=== PATIENT | female | born 1970 | race Caucasian/White ===

== ENCOUNTER → 2016-09-06 13:33 | Emergency (ER) | payer OTHER ==
[~2016-09-06 13:33] MED LIST: Morphine INJ* 2 MG/ML 1 ML SYRINGE IV ONE; Morphine INJ* 4 MG/ML 1 ML SYRINGE IV ONE; Morphine INJ* 4 MG/ML 1 ML SYRINGE ONE; NS 0.9% 1000 ML* 1,000 ML IV ONE; Ondansetron INJ* 2 MG/ML VIAL IV ONE; Ondansetron INJ* 2 MG/ML VIAL ONE; Tetan/Diph/Pertus SYR(Tdap)* 0.5 ML SYR(BOOSTRIX) use SYR IM ONE; ceFAZolin 1 GM in Dextrose (*) 1 GM/50 ML BAG IVPB ONE
--- NOTE | 2016-09-06 14:16 | RAD ---
Indication: Laceration to the palmar aspect of the hand, left hand injury. 2 views of left hand demonstrates no fracture. No other bone or joint abnormality is identified. A bandage obscures overlying soft tissue. IMPRESSION: No fracture of the left hand is noted.
--- NOTE | 2016-09-06 14:29 | RAD ---
Indication: Fell and landed on glass bottle. Possible glass foreign body and arterial laceration at the LEFT wrist. Comparison: LEFT hand of the same date. Technique: AP and lateral views LEFT wrist Report: Bandage limits assessment of the soft tissues. 2 mm density along the palmar aspect superficial to the base of the first metacarpal may represent an embedded foreign body or artifact from the overlying bandage. Negative for fracture or malalignment. IMPRESSION: Indeterminant for presence of a foreign body due to overlying bandage. Consider removing the bandage and repeating the exam.
[2016-09-06 15:05] LABS: Hematocrit 40 % (35-47); Hemoglobin 13.2 g/dl (12.0-16.0); Mean Corpuscular HGB Conc 33 g/dl (31-36); Mean Corpuscular Hemoglobin 27 pg (27-31); Mean Corpuscular Volume 82 fL (80-97); Mean Platelet Volume 9 um3 (7.4-10.4); Red Blood Count 4.83 10^6/ul (4.0-5.4); Red Cell Distribution Width 16 % (10.5-15); White Blood Count 9.2 10^3/ul (3.5-10.8)
--- NOTE | 2016-09-06 15:26 | ED ---
jaun Wills Timothy, scribed for Audi Lambert MD on 09/06/16 at 1355 . Laceration/Wound HPI - HPI Summary HPI Summary: Echo Trinidad is a 46 yo [place] [facility] [place] on a glass bottle with her left hand in 5/10 pain. She arrives with glass still in the hand with the hand wrapped in a towel. She denies any lightheadedness or nausea , as well as loss of sensation, but is requesting pain management medication. Her Mx includes umbilical hernia repair 2011, hay fever. - History of Current Complaint Stated Complaint: LT HAND/LAC Time Seen by Provider: 09/06/16 13:46 Hx Obtained From: Patient Mechanism of Injury: Sharp/Blunt Trauma Onset/Duration: Sudden Onset Alleviating: Compression Timing: Constant Onset Severity: Moderate Current Severity: Moderate Pain Intensity: 5 Pain Scale Used: 0-10 Numeric Associated Signs & Symptoms: Pain - Allergy/Home Medications Allergies/Adverse Reactions: Allergies Allergy/AdvReac Type Severity Reaction Status Date / Time BEE STINGS Allergy Severe Swelling Uncoded 08/25/16 13:00 PMH/Surg Hx/FS Hx/Imm Hx Cardiovascular History: Denies: Other Cardiovascular Problems/Disorders Respiratory History: Denies: Other Respiratory Problems/Disorders GI History: Denies: Other GI Disorders - umbilical hernia repair 2011 Sensory History: Reports: Hx Contacts or Glasses - GLASSES INST Denies: Hx Hearing Aid Opthamlomology History: Reports: Hx Contacts or Glasses - GLASSES INST - Cancer History Hx Chemotherapy: No Hx Radiation Therapy: No - Surgical History Surgery Procedure, Year, and Place: 2005 D/C MISSED AB DHALIWAL 2011 [place] [facility] [place] LAPAROSCOPIC VENTRAL HERNIA [place] WITH MESH[place] [facility] [place] CERCLAGEMARIZOL, 01/2013 EXP LAPAROTOMY, LYSIS OF ADHESION, VENTRAL HERNIA [place] WITH REPLACEMENT [place] [facility] [place] Anesthesia Reactions: No Infectious Disease History: Denies: Hx Clostridium Difficile, Hx Hepatitis, Hx Human Immunodeficiency Virus (HIV), Hx of Known/Suspected MRSA, Hx Shingles, Hx Tuberculosis, Hx Known/ Suspected VRE, Hx Known/Suspected VRSA, History Other Infectious Disease, Traveled Outside the [place] in Last 30 Days - Family History Known Family History: Positive: Other - breast CA, anasthesis reaction - Social History Alcohol Use: Weekly Substance Use Type: Reports: None Smoking Status (MU): Former Smoker Type: Cigarettes Amount Used/How Often: 1/2 PPD Length of Time of Smoking/Using Tobacco: 15 YEARS Have You Smoked in the Last Year: No Review of Systems Constitutional: Negative Negative: Fever, Chills Eyes: Negative Negative: Erythema ENT: Negative Negative: Sore Throat Cardiovascular: Negative Negative: Palpitations, Chest Pain Respiratory: Negative Negative: Shortness Of Breath, Cough Gastrointestinal: Negative Negative: Abdominal Pain, Vomiting, Nausea Genitourinary: Negative Negative: dysuria, hematuria Musculoskeletal: Negative Negative: Edema - legs Positive: Other - laceration on left hand. Negative: Rash Neurological: Negative - no dizziness Psychological: Normal All Other Systems Reviewed And Are Negative: Yes Physical Exam - Summary Physical Exam Summary: Constitutional: Well-developed, Well-nourished, Alert. (-) Distressed Skin: Warm, Dry. Pulsatile bleeding corrsponding to heart rate from a laceration on the radial aspect of the left hand. Distal sensation is intact. HENT: Normocephalic; Atraumatic Eyes: Conjunctiva normal Neck: Musculoskeletal ROM normal neck. (-) JVD, (-) Stridor, (-) Tracheal deviation Cardio: Rhythm regular, rate normal, Heart sounds normal; Intact distal pulses; The pedal pulses are 2+ and symmetric. Radial pulses are 2+ and symmetric. (-) Murmur Pulmonary/Chest wall: Effort normal. (-) Respiratory distress, (-) Wheezes, (-) Rales Abd: Soft, (-) Tenderness, (-) Distension, (-) Guarding, (-) Rebound Musculoskeletal: (-) Edema Lymph: (-) Cervical adenopathy Neuro: Alert, Oriented x3 Psych: Mood and affect Normal Triage Information Reviewed: Yes Vital Signs On Initial Exam: Initial Vitals Temp Pulse Resp BP Pulse Ox 97.1 F 96 20 143/106 99 09/06/16 13:34 09/06/16 13:34 09/06/16 13:34 09/06/16 13:34 09/06/16 13:34 Vital Signs Reviewed: Yes Diagnostics - Vital Signs Vital Signs Temp Pulse Resp BP Pulse Ox 09/06/16 13:34 97.1 F 96 20 143/106 99 - Laboratory Lab Results: Lab Results 09/06/16 Range/Units 14:30 WBC 9.2 (3.5-10.8) 10^3/ul RBC 4.83 (4.0-5.4) 10^6/ul Hgb 13.2 (12.0-16.0) g/dl Hct 40 (35-47) % MCV 82 (80-97) fL MCH 27 (27-31) pg MCHC 33 (31-36) g/dl RDW 16 H (10.5-15) % Plt Count 378 (150-450) 10^3/ul MPV 9 (7.4-10.4) um3 Result Diagrams: 09/06/16 14:30 Lab Statement: Any lab studies that have been ordered have been reviewed, and results considered in the medical decision making process. - Radiology L Hand Xray Interpretation: No Acute Changes - IMPRESSION: No fracture of the left hand is noted. Radiology Interpretation Completed By: Radiologist L wrist Xray Interpretation: No Acute Changes - IMPRESSION: Indeterminant for presence of a foreign body due to overlying bandage. Consider removing the bandage and repeating the exam. Radiology Interpretation Completed By: Radiologist Re-Evaluation - Re-Evaluation First Eval Re-Evaluation Time: 14:23 Change: Worse Comment: Applied more pressure, fingers are becoming cool and dusky. Second Eval Re-Evaluation Time: 15:23 Change: Unchanged Comment: Pt stil lhas sensation in digits, digits are not cyantoic. She is reporting pain in the hand, and is agreeable to be transferred. Laceration Repair Course/Dx - Course Assessment/Plan: Echo Trinidad is a 46 yo female presenting to [facility] with a laceration to her left hand after falling on a glass bottle. There is glass present in the laceration. In the ED she received morphine and zofran. Her left hand XR suggests no fracture. Her left wrist XR suggests indeterminate results for presence of foreign body due to overlying bandage. After clinical examination and review of her lab and imaging studies, as well as discussion with Dr. Gaspar, she will be transferred to [facility] for the services of a vascular surgeon. - Differential Dx Differental Diagnoses: Laceration - Clinical Impression Provider Diagnoses: Laceration of radial artery - Physician Notifications Discussed Care Of Patient With: 1425 - Dr. Gaspar (orthopedics) - discussed Pt condition, will see in ED for evaluation. 1446 - Dr. Gaspar (orthopedics) - recommended services of a dedicated hand surgeon, which would involve transfer to a different facility. 1502 - Pipo Aly - awaiting retun call. 1518 - Dr. Curiel ([facility]) - discussed Pt condition, accepts Pt for transfer for services of vascular surgeon. Instructed by Provider To: MD Will See In ED Discharge - Discharge Plan Condition: Stable Disposition: TRANS HIGHER LVL OF CARE FAC Discharge Disposition Comment: transfer for services of vascular surgeon @ [facility] Referrals: Doris Carter MD [Primary Care Provider] - The documentation as recorded by the jaun kee Timothy accurately reflects the service I personally performed and the decisions made by me, Audi Lambert MD.
[2016-09-06 15:27] LABS: BUN/Creatinine Ratio 25.4 (8-20); Calcium 9.1 mg/dL (8.6-10.3); EGFR Non-African American 88.6 (>60)
[2016-09-06 15:52] VITALS: BP 136/68
== END | disposition short-term general hospital (02) ==
LOC: ED 13:33
DX: S61.412A Laceration without foreign body of left hand, initial encounter (principal); W19.XXXA Unspecified fall, initial encounter; Y93.9 Activity, unspecified; Y92.9 Unspecified place or not applicable; Z87.891 Personal history of nicotine dependence
CPT/HCPCS: 36415; 80048; 85027; 90471; 90715; 96374; 96375; 96376; 99284; J0690; J2270; J2405

== ENCOUNTER 2016-09-09 11:55 | Day surgery (SDC) | payer OTHER ==
--- NOTE | 2016-09-08 21:43 | HP ---
HISTORY AND PHYSICAL: DATE OF SURGERY/ADMISSION: 09/09/16 [facility] ATTENDING SURGEON: Elaina Alvarenga MD (dictated by JEFF Berrios) PROCEDURE: Left hand removal of foreign body. CHIEF COMPLAINT: Left hand pain. HISTORY OF PRESENT ILLNESS: Echo is a 46-year-old female who complains of a 5-year history of left hand pain. She reports that this started on 09/06/16, when she fell at work after she tripped on a pothole and fell on a glass bottle. She was seen at ER where x-rays were obtained and the left hand was sutured. She denies fevers, chills, numbness or tingling. PAST MEDICAL HISTORY: Negative. PAST SURGICAL HISTORY: Hernia repair x4. MEDICATIONS: She is on Keflex. ALLERGIES: No known drug allergies. FAMILY HISTORY: Positive for cancer, diabetes mellitus, and stroke. 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 She denies tobacco use, she quit 15 years ago and admits to a glass of wine per night with dinner and denies drug use. REVIEW OF SYSTEMS: A 14-point review of systems was reviewed with the patient. She does note some mild paresthesias in the left hand. Otherwise, negative review of systems and noncontributory. PHYSICAL EXAMINATION GENERAL: Well-developed, well-nourished 46-year-old female, in no acute distress. VITAL SIGNS: Height 62 inches, weight 210 pounds. Pulse is 76, blood pressure is 121/78, temperature 97.8. She has a BMI of 38.4. HEENT: Normocephalic, atraumatic. NECK: Supple. No palpable lymph nodes. Throat is clear. CARDIO: Regular rate and rhythm. S1, S2. No murmurs, gallops, or rubs. No edema. PULMONARY: Lungs clear to auscultation bilaterally. No wheezes, rhonchi, or rales. ABDOMEN: Soft, nontender. Positive bowel sounds throughout. MUSCULOSKELETAL: There is a wound on the palm of the left hand, which was approximated with sutures. NEUROLOGIC: Alert and oriented x3. Cranial nerves II through XII are intact. Sensation intact to light touch. DIAGNOSTIC STUDIES: X-rays were obtained on 09/06/16 at [facility] [place] emergency room and showed no acute abnormalities. IMPRESSION: Laceration of the left hand with foreign body. PLAN: The patient is scheduled to undergo a left hand removal of foreign body with Dr. Alvarenga on 09/09/16. She will return to the office 10 to 14 days postop for followup and suture removal. The patient declined narcotics for postop pain control. She will take ibuprofen and Tylenol for postoperative pain management. JEFF HEREDIA [id number]/[facility] #: [id number] MTDD
[~2016-09-09 11:55] MED LIST changes: +Acetaminophen TAB* 325 MG PO PRN; +DiMENhydriNATE IV* 50 MG/ML VIAL IV PUSH PRN; +Famotidine IV* 10 MG/ML 2 ML (20 mg) IV ONE; +Lidocaine 1% INJ* 10 MG/ML 30 ML SDV ONE; -Morphine INJ* 2 MG/ML 1 ML SYRINGE IV ONE; -Morphine INJ* 4 MG/ML 1 ML SYRINGE IV ONE; -Morphine INJ* 4 MG/ML 1 ML SYRINGE ONE; -NS 0.9% 1000 ML* 1,000 ML IV ONE; -Ondansetron INJ* 2 MG/ML VIAL IV ONE; -Ondansetron INJ* 2 MG/ML VIAL ONE; -Tetan/Diph/Pertus SYR(Tdap)* 0.5 ML SYR(BOOSTRIX) use SYR IM ONE; -ceFAZolin 1 GM in Dextrose (*) 1 GM/50 ML BAG IVPB ONE
[2016-09-09] MEDS ORDERED: Buffered Lidocaine 1% SYRIN* 5 ML/SYR SYRINGE ONE (12:04)
[2016-09-09] MEDS ORDERED: ceFAZolin 2 GM PREMIX(*) 2 GM/50 ML BAG IVPB ONE (12:04)
[2016-09-09] MEDS ORDERED: Famotidine IV* 10 MG/ML 2 ML (20 mg) ONE ×2 (12:04→12:17)
[2016-09-09] MEDS ORDERED: Propofol* 10 MG/ML 20 ML BTL IV PUSH ONE (12:08)
[2016-09-09] MEDS ORDERED: Midazolam* 1 MG/ML 5 ML VIAL (5 MG) ONE (12:08)
[2016-09-09] MEDS ORDERED: Ketorolac INJ* 30 MG/ML 1 ML VIAL ONE (12:08)
[2016-09-09] MEDS ORDERED: fentaNYL* 50 MCG/ML 2 ML VIAL (100 MCG VIAL) ONE (12:08)
[2016-09-09] MEDS ORDERED: Lidocaine 2% PF * 5 ML VIAL ONE (12:08)
[2016-09-09] MEDS ORDERED: Ondansetron INJ* 2 MG/ML VIAL ONE (12:08)
[2016-09-09] MEDS ORDERED: KETAMINE HCL* 50 MG/ML 10 ML VIAL ONE (12:21)
[2016-09-09 13:53] VITALS: BP 138/73
--- NOTE | 2016-09-10 02:06 | OP ---
DATE OF OPERATION: 09/09/16 [facility] DATE OF : 70 SURGEON: Elaina Alvarenga MD SECURITY GUARD DISPATCHER: JEFF Bruce ANESTHESIOLOGIST: Anel Miranda MD ANESTHESIA: Local MAC. PRE-OP DIAGNOSIS: Foreign body in the left hand with possible median nerve injury. POST-OP DIAGNOSIS: Hematoma in the left hand with median nerve compression. OPERATIVE PROCEDURE: Wound exploration and irrigation and carpal tunnel release. ESTIMATED BLOOD LOSS: Zero. TOURNIQUET TIME: About 20 minutes. INDICATIONS FOR PROCEDURE: Echo is a 46-year-old female who fell with a bottle in her hand, the bottle broke and lacerated her hand. She complains of tingling in her thumb, otherwise her function is intact. She was told at the emergency room at [facility] that she had some glass remaining in her hand. She presents for wound exploration, foreign body removal and median nerve exploration and possible repair. DESCRIPTION OF PROCEDURE: The patient was brought to the operating room, was given a sedation anesthetic and a local anesthetic with 10 cc of 1% plain lidocaine. The skin of her left hand and forearm was prepped and draped in the usual sterile fashion. The hand and forearm were exsanguinated and the tourniquet elevated to 250 mmHg. The sutures were removed and wound extended proximally and distally. The wound was carefully explored. There was a large hematoma. This was evacuated. No foreign body was found. Because of the symptoms of the tingling in the thumb, carpal tunnel release was performed and the median nerve was found to be in good condition without any laceration. The wound was irrigated and the skin edges were reapproximated with 4-0 nylon suture. The wound was dressed with Xeroform, 4x4, Webril, and an Ulysses wrap. The patient tolerated the procedure well, was brought to the recovery room in good condition. [id number]/[facility] #: [id number] [facility]
== END 2016-09-09 13:56 | disposition home or self-care (01) ==
LOC: OREAST 11:55
PROVIDERS: ATTEND Orthopaedic Surgery
DX: S60.222A Contusion of left hand, initial encounter (principal); G56.02 Carpal tunnel syndrome, left upper limb; W19.XXXA Unspecified fall, initial encounter; Y92.9 Unspecified place or not applicable
CPT/HCPCS: J0690; J1885; J2001; J2250; J2405; J2704; J3010

== ENCOUNTER 2017-04-26 08:23 | Observation (INO) | payer SELFPAY ==
--- NOTE | 2017-01-09 15:08 | HP ---
CC: Dr. Doris Carter* ADMISSION HISTORY AND PHYSICAL: DATE OF ADMISSION: 01/25/17 ATTENDING SURGEON: Dr. Arnoldo Elizalde * (DICTATED BY JEFF LENZ) CHIEF COMPLAINT: Ventral hernia. HISTORY OF PRESENT ILLNESS: This is a 46-year-old female who has undergone 4 prior laparotomies beginning in 2011 when she presented with an umbilical hernia with strangulated small bowel requiring resection. This was deemed to be work related as have been all of her subsequent surgeries (see below for surgical history). Since her last surgery in September of 2014, she has again developed an epigastric bulge first noted in July of this year. This has been associated with pain particularly related to activity. She has been fitted with an abdominal binder which she uses throughout the day and is relatively pain free when using the binder. She does not require the binder at night. She has not had any symptoms to suggest incarceration or strangulation. She does have times where she manually needs to reduce the hernia to relieve symptoms (gas and bloating). She underwent CT scan on 08/25/16 which showed a medium sized fat containing ventral hernia without obstruction. She was also noted to have scattered diverticula. She was seen in the office by Dr. Elizalde in August and then again more recently in October where exam confirms presence of a reducible midabdominal hernia that is minimally tender to deep palpation. There is also some rectus diastasis noted superiorly. Dr. Elizalde referred the patient for medically supervised weight loss in attempt to get her weight closer to 200 pounds prior to upcoming surgery. I did review the one note in her chart from Neida Peng, I am not certain if the patient returned for additional visits. She was down to about 200 pounds, though her weight is up 5 pounds from the past week when she was on vacation. Also of note , patient noted right calf pain after driving 5 hours to [place] . She states that it is still present though is about 50% better and on exam, she has tenderness to palpation and the calf circumference is approximately 2 cm greater than the left side. Therefore, she will be sent for venous duplex to rule out DVT. That study is pending for later this afternoon. Patient otherwise understands the indications for surgery. The risks, benefits, and alternatives and would like to proceed as scheduled with laparoscopic repair of ventral hernia with mesh; possible laparotomy. Addendum: venous duplex was positive for calf vein thrombosis; therefore, her PCP office was contacted regarding treatment and her surgery will likely be put on hold pending discussion with Dr. Elizalde. PAST MEDICAL HISTORY: Multiple prior abdominal surgeries for ventral hernias ( see below). She is obese (class II) with BMI today of 37.5. She has also had mildly elevated A1c of 6.4 in the past, with most recent repeat of 5.9. She otherwise has no additional chronic or active medical problems. PAST SURGICAL HISTORY: Most recently in August of 2016, she underwent left hand surgery after a fall with debridement of hematoma and carpal tunnel release. She has done well from that surgery. Her abdominal surgeries include 2011 with small bowel resection for ischemic bowel and repair of hernia, subsequently she underwent I and D of an abdominal abscess. In April 2012, laparoscopic repair of ventral hernia with mesh. In January 2013, exploratory laparotomy, lysis of adhesions, removal of old mesh, small bowel resection, compounded separation with primary closure of abdominal wall and placement of biological mesh. In April of 2014, panniculectomy, excision of a large seroma capsule and repair of a small ventral hernia with mesh. CURRENT MEDICATIONS: None. DRUG ALLERGIES: None. FAMILY HISTORY: Negative for anesthesia problems (with the exception of her mother whose anesthesia problems have been related to her history of asthma; the patient herself has not had any anesthesia related problems), bleeding or clotting disorders. SOCIAL HISTORY: Patient is , she has 2 children. She is a nonsmoker ( quit 15 years ago) and drinks alcohol occasionally, but not daily. 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 REVIEW OF SYSTEMS: General: She has some mild URI symptoms of primarily nasal congestion. She denies fever, chills or productive cough. She also has recent aforementioned right calf pain (see above). Cardiovascular: No chest pain, palpitations, history of heart murmur or hypertension. Respiratory: No history of asthma, chronic cough or shortness of breath. GI: No problems reported. : No problems reported, specifically no dysuria. Medical Billing Coder: She is up- to-date within the past year for breast and pelvic exams, all reportedly normal. Mammogram also done within the past year, reportedly normal. Endocrine : No diabetes or thyroid dysfunction though mildly elevated A1c as noted above. She is class II obese. PHYSICAL EXAMINATION GENERAL: Well-nourished, obese female in no acute distress. VITAL SIGNS: Height 5 feet 2 inches, weight 205, BMI 37.5. Blood pressure 130/ 82, pulse 72, respirations 16. HEENT: Pupils are equal, round, reactive. EOMs intact. No conjunctival pallor. Sclerae icterus. Oropharynx: Mucous membranes are moist. Teeth in good repair. No intraoral lesions. NECK: No lymphadenopathy, thyromegaly or masses. LUNGS: Clear to auscultation. No rales or wheezes. HEART: Regular rate and rhythm. No murmur noted. BREAST: Not examined. ABDOMEN: She has an abdominal binder in place and therefore, limited exam, soft , nontender to palpation. No palpable masses, organomegaly other than the midline abdominal hernia as noted above per Dr. Elizalde's exam. GENITALIA: Not done. RECTAL: Not done. BACK: No spinous process or CVA tenderness. EXTREMITIES: No distal edema. She does have some tenderness in the posterior right calf and maximum calf circumference of approximately 47 cm versus 44 cm on the left. NEUROLOGICAL: Grossly intact. SKIN: Warm and dry. No suspicious rashes or lesions noted. IMPRESSION: Ventral hernia (with multiple previous abdominal surgeries); right lower extremity calf swelling and tenderness. PLAN: Scheduled for laparoscopic ventral hernia repair with mesh, possible laparotomy for 01/25/17. She will be sent for venous Duplex of the right lower extremity which is scheduled for later today. JEFF LENZ [id number]/[facility] #: [id number] LUIS [address]
--- NOTE | 2017-04-13 07:42 | HP ---
CC: Dr. Doris Carter, [facility]. * ADMISSION HISTORY AND PHYSICAL: DATE OF ADMISSION: 04/26/17 ATTENDING SURGEON: Dr. Arnoldo Elizalde * (DICTATED BY JEFF LENZ). CHIEF COMPLAINT: Ventral hernia. HISTORY OF PRESENT ILLNESS: This is a 46-year-old female who has undergone 4 prior laparotomies beginning in 2011 when she presented with an umbilical hernia with strangulated small bowel requiring resection. This was deemed to be work related as have been all of her subsequent surgeries (see below for surgical history). Since her last surgery in September 2014, she has again developed an epigastric bulge first noted in July this year. This has been associated with pain, particularly related to activity. She uses an abdominal binder undergarment, which does help control some of her symptoms at least during the day when she is up and active. She does not require the binder at night. She has not had any symptoms to suggest incarceration or strangulation, but has had a couple of episodes in recent months of severe pain, which responded to manual compression and time. She underwent a CT scan on 08/25/16, which showed a medium-sized fat containing ventral hernia without obstruction. She was also noted to have scattered diverticula. She was seen in the office by Dr. Elizalde in August and then more recently in October and February, where exam confirms the presence of a reducible midabdominal hernia that is minimally tender to deep palpation. There is also some rectus diastasis noted superiorly. The patient was treated in early January for a provoked DVT (following a long car ride). The patient was placed on Xarelto and on recent ultrasound of the right lower extremity there were no findings of DVT. Her workup including factor V Leiden, protein C and protein S was negative, though there is a positive family history of thromboembolic disease (see below). The patient has been cleared to proceed with surgery. She understands the indications, risks, benefits, and alternatives and would like to proceed as scheduled with laparoscopic repair of ventral hernia with mesh with possible laparotomy. PAST MEDICAL HISTORY: Multiple abdominal surgeries for ventral hernias (see below), recent DVT, obesity (class II), history of mildly elevated A1c in the past with most recent repeat of 5.9. No other active medical problems. PAST SURGICAL HISTORY: August 2016, left hand surgery after a fall with debridement of hematoma and carpal tunnel release. Abdominal surgeries include 2012 with small bowel resection for ischemic bowel and repair of hernia. Subsequently, she underwent I and D of an abdominal abscess. In April 2012, laparoscopic repair of ventral hernia with mesh. In January 2013, exploratory laparotomy, lysis of adhesions, removal of old mesh, small bowel resection, component separation with primary closure of abdominal wall and placement of a biological mesh. In April 2014, panniculectomy with excision of a large seroma capsule and repair of a small ventral hernia with mesh. CURRENT MEDICATIONS: None. DRUG ALLERGIES: None. FAMILY HISTORY: Her mother has had some previous anesthesia problems, but primarily related to her asthma. Her mother also had a history of a PE, though the patient is unsure whether it was provoked or not. No additional thromboembolic venous disease in her family. SOCIAL HISTORY: The patient is , she has 2 children. She is a nonsmoker (quit 15 years ago) and drinks alcohol occasionally, but not daily. 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 REVIEW OF SYSTEMS: General: No recent acute illnesses or constitutional symptoms. She is now asymptomatic in regard to her right lower extremity. Cardiovascular: No chest pain, palpitations, history of heart murmur, or hypertension. Respiratory: No history of asthma, chronic cough, or shortness of breath. GI: No problems reported. : No problems reported. REVIEW NURSE: She is up-to-date within the past year for breast and pelvic exams, all reportedly normal. Mammogram done within the past year reportedly normal. Endocrine: No diabetes or thyroid dysfunction other than the mildly elevated A1c as noted above. Class II obesity. PHYSICAL EXAMINATION GENERAL: Well-nourished, well-developed female, in no acute distress. VITAL SIGNS: Height 5 feet 2 inches, weight 205. Temperature 97.8, blood pressure 124/80, pulse 72, respirations 18. HEENT: Pupils equal, round, and reactive. EOMs intact. No conjunctival pallor. Oropharynx: Teeth in good repair. No intraoral lesions. NECK: No lymphadenopathy, thyromegaly, or masses. LUNGS: Clear to auscultation. No rales or wheezes. HEART: Regular rate and rhythm. No murmur noted. BREASTS: Not examined. ABDOMEN: She is status post panniculectomy and therefore her surgical scars and umbilicus are absent from that surgery. In the supine position and with straining, there is a visible and palpable bulge in the mid abdomen, which is nontender and reducible and consistent with the aforementioned ventral hernia. She also has some degree of diastasis in the superior abdomen. The remainder of the abdomen is soft, nontender and without palpable masses or organomegaly. GENITALIA: Not done. RECTAL: Not done. BACK: No spinous process or CVA tenderness. EXTREMITIES: No edema. NEUROLOGICAL: Grossly intact. SKIN: Warm and dry. No suspicious rashes or lesions noted. IMPRESSION: Ventral hernia. PLAN: Laparoscopic repair of ventral hernia with mesh; possible laparotomy. JEFF LENZ [id number]/CPS #: [id number] MTDD
[~2017-04-26 08:23] MED LIST changes: -Acetaminophen TAB* 325 MG PO PRN; +Buffered Lidocaine 0.9% SYRIN* 5 ML/SYR SYRINGE INTRADERM ONE; -DiMENhydriNATE IV* 50 MG/ML VIAL IV PUSH PRN; -Famotidine IV* 10 MG/ML 2 ML (20 mg) IV ONE; -Lidocaine 1% INJ* 10 MG/ML 30 ML SDV ONE
[2017-04-26] MEDS ORDERED: Heparin VIAL(*) 5000 UNITS/ML VIAL (FIVE THOUSAND) ONE (08:46)
[2017-04-26] MEDS ORDERED: ceFAZolin 2 GM PREMIX (*) 2 GM/50 ML BAG IVPB ONE (08:46)
[2017-04-26] MEDS ORDERED: Buffered Lidocaine 0.9% SYRIN* 5 ML/SYR SYRINGE ONE (08:47)
[2017-04-26] MEDS ORDERED: Bupivacaine 0.25% SDV* 30 ML ONE ×2 (10:49→13:19)
[2017-04-26] MEDS ORDERED: Atracurium* 10 MG/ML 10 ML VIAL ONE (10:57)
[2017-04-26] MEDS ORDERED: Midazolam* 1 MG/ML 2 ML VIAL (2 MG) ONE (10:57)
[2017-04-26] MEDS ORDERED: fentaNYL* 50 MCG/ML 2 ML VIAL (100 MCG VIAL) ONE ×4 (10:57→14:07)
[2017-04-26] MEDS ORDERED: Propofol* 10 MG/ML 20 ML BTL IV PUSH ONE (10:57)
[2017-04-26] MEDS ORDERED: Dexamethasone IV* 4 MG/ML 1 ML (4 MG) ONE (11:34)
[2017-04-26] MEDS ORDERED: Ondansetron INJ* 2 MG/ML VIAL IV PRN ×2 (12:29→20:00)
[2017-04-26] MEDS ORDERED: DiMENhydriNATE IV* 50 MG/ML VIAL IV PUSH PRN (12:29)
[2017-04-26] MEDS ORDERED: Ondansetron INJ* 2 MG/ML VIAL ONE ×2 (13:37→15:00)
[2017-04-26] MEDS ORDERED: Glycopyrrolate IV* 0.2 MG/ML 1 ML VIAL ONE (13:42)
[2017-04-26] MEDS ORDERED: Neostigmine Methylsulfate* 2 MG/2 ML SYRINGE ONE ×2 (13:42→13:48)
--- NOTE | 2017-04-26 13:48 | BRIEFOPN ---
Brief Operative Note - Surgery Procedures: Procedures Pre-OP Diagnoses: ventral hernia Post-op Diagnosis: same Procedure: laparoscopic ventral hernia repair with mesh Surgeon: Tonio Asst: John Woods: MARISABEL Dawson EBL: 100cc IVF: 2500cc LR Specimen: none Drains: none
[2017-04-26] MEDS ORDERED: HYDROmorphone INJ* 1 MG/ML CARPUJECT SYRINGE ONE ×2 (14:07→15:50)
[2017-04-26] MEDS: HYDROmorphone INJ* 1 MG/ML CARPUJECT SYRINGE IV PRN ×5 (14:11→15:02)
[2017-04-26] MEDS: fentaNYL* 50 MCG/ML 2 ML VIAL (100 MCG VIAL) IV PRN ×4 (14:12→14:17)
[2017-04-26] MEDS ORDERED: oxyCODONE/Acetamin 5/325 MG* TAB PO PRN ×2 (20:00)
[2017-04-26] MEDS ORDERED: HYDROmorphone INJ* 1 MG/ML CARPUJECT SYRINGE IV PRN (20:01)
[2017-04-26] MEDS ORDERED: diPHENhydraMINE IV* 50 MG/ML 1 ml VIAL (BENADRYL) IV PRN (20:18)
[2017-04-26] MEDS ORDERED: diPHENhydraMINE PO* 25 MG PO PRN (20:18)
[2017-04-26] MEDS: Ibuprofen TAB* 600 MG PO PRN (22:05)
--- NOTE | 2017-04-27 02:20 | OP ---
CC: Dr. Doris Carter * DATE OF OPERATION: 04/26/17 - ROOM #333 DATE OF : 70 SURGEON: Arnoldo Elizalde MD [employer] SALES REPRESENTATIVE: JEFF Hernandez ANESTHESIOLOGIST: Dr. Dawson. ANESTHESIA: General anesthesia. PRE-OP DIAGNOSIS: Ventral hernia. POST-OP DIAGNOSIS: Ventral hernia. OPERATIVE PROCEDURE: Laparoscopic ventral hernia with mesh. BLOOD LOSS: Approximately 100 cc. FLUIDS: 2500 cc of crystalloid fluid given. SPECIMEN: None. DRAINS: None. DESCRIPTION OF PROCEDURE: Ms. Trinidad was identified in the preoperative area. We identified the hernia again and the patient's abdomen was marked. She was brought to the operating room and placed on the operating table in supine position. Preoperative antibiotics were given. Sequential devices were placed on bilateral lower extremities. General anesthesia was induced. Ansari catheter was inserted. Patient's abdomen was prepped and draped in the standard surgical fashion. Time-out was performed. A subcostal incision was made on the left approximately two fingerbreadths below the costal margin on the mid clavicular line. This was deepened down to the anterior fascia, which was elevated and a Veress needle was inserted into the abdominal cavity, which was then insufflated to a pressure of 15 mmHg. Next , a 5-mm Optiview was then inserted into the abdomen and there was no evidence of injury from the trocar insertion. Veress needle had been removed. Camera was placed after the obturator was removed and we reviewed the abdomen. Significant amount of anterior abdominal wall adhesion mostly omentum with some evidence of small bowel and colon mostly in the mid abdomen. Additional trocars were placed in the following position: A 5 mm in the left lower quadrant, a 5 mm in the subxiphoid area. Attention was turned to the anterior abdominal wall. With both blunt and sharp dissection, we released the attachments to the anterior abdominal wall which consisted mostly of omentum. These extended into the hernia where we saw the most significant hernia in the midline. It was measured approximately 4 x 3 cm. We reduced the contents of this, which included additional omentum and this was debrided and removed from the abdomen as needed. We took down a falciform as well. We utilized clip metal bending machine operator when needed to gain hemostasis and at one point an 0 Vicryl Endoloop to gain hemostasis along the omentum. We took care not to have any injury to the intestines and these were avoided at all during the entire procedure. With the hernias identified, there were approximately two and possibly a third hernia in series in the anterior abdominal wall, the most pronounced one was the expected lower one. The others may have been just secondary to changes from patient's abdominoplasty. We gained hemostasis at the omentum as I said before with Endoloops or clip metal bending machine operator as needed. Hemostasis was excellent. The major hernia at the inferior aspect was going to be our primary mesh site. A 4-inch x 6-inch mesh was then opened up. This was a Ventralight ST with Echo PS positioning system. We placed 0 Prolene sutures at all 4 sites and rolled it up and placed it into the abdomen. A tubing was then brought out through the mid portion of our planned tacking of the hernia over the multiple hernia defects. Prior to placing any tacks, we did remove the Surgipro sutures with Endo Close device in an appropriate manner and we noted full coverage of the hernias. Next, a SecureStrap tacker was utilized to tack the perimeter of the mesh. The positioning system was then removed and review of the abdomen showed good hemostasis. Mesh was appropriately placed without wrinkling or without tension. We then allowed the abdomen to collapse. Trocars were removed under direct vision and the anterior fascia at the 12-mm port site. It should be noted we upsized the initial incision site to a 12-mm port, it was closed at the fascial layer with an 0 Polysorb suture and all three skin incisions were reapproximated with 4-0 Monocryl subcuticular sutures. We utilized glue at the sites of the suturing and at the positioning system tubing. The patient was awoken up in the OR, Ansari catheter removed and transferred to the PACU in stable condition. [id number]/[facility] #: [id number] LUIS E
[2017-04-27] MEDS: Ibuprofen TAB* 600 MG PO PRN (07:00)
[2017-04-27 07:41] VITALS: BP 128/63
--- NOTE | 2017-04-27 08:33 | PN ---
Progress Note - Progress Note Date of Service: 04/27/17 Note: S: doing well; louann po; pain controlled w/ po meds; up and ambulating O: Vital Signs - 8 hr 04/27/17 04/27/17 04/27/17 02:08 03:20 06:07 Temperature 98.2 F Pulse Rate 82 Respiratory 16 16 15 Rate Blood Pressure 112/59 (mmHg) O2 Sat by Pulse 99 Oximetry 04/27/17 07:33 Temperature 97.9 F Pulse Rate 73 Respiratory 16 Rate Blood Pressure 128/63 (mmHg) O2 Sat by Pulse 96 Oximetry Heart: reg Lungs: clear ant Abd: binder in place; lap incisions ok A: s/p lap repair ventral hernia w/ mesh P: home today; instructions reviewed; f/u as sched for next wk
--- NOTE | 2017-04-27 17:35 | DS ---
CC: Dr. Doris Carter * DISCHARGE SUMMARY: DATE OF ADMISSION: 04/26/17 DATE OF DISCHARGE: 04/27/17 ATTENDING SURGEON: Dr. Arnoldo Elizalde * (DICTATED BY JEFF LENZ) HOSPITAL COURSE: Please refer to admission history and physical and operative note for details. The patient was taken to the operating room on 04/26/[address] Elizalde and underwent laparoscopic repair of ventral hernia with mesh. She has had an otherwise uneventful postoperative course and as of the morning of discharge is tolerating oral intake and pain was well controlled with oral meds. She is up and ambulating. PHYSICAL EXAMINATION: She is afebrile with stable vital signs. Heart: Regular rate and rhythm. Lungs: Clear to auscultation. Abdomen: Laparoscopic incision sites with clean dry dressings, abdominal binder in place. IMPRESSION: Status post laparoscopic repair of ventral hernia with mesh, doing well. PLAN: Home today. Instructions regarding wound care and activity are reviewed. She has a followup scheduled in our office for next week. JEFF LENZ [id number]/[facility] #: [id number] LUIS E
== END 2017-04-27 10:35 | disposition home or self-care (01) ==
LOC: OR 08:23 → SSU 17:14
PROVIDERS: ADMIT Surgery; ATTEND Surgery
PROC: 0WUF4JZ Supplement Abdominal Wall with Synthetic Substitute, Percutaneous Endoscopic Approach (ICD-10-PCS; principal; 2017-04-26 10:00)
DX: K43.9 Ventral hernia without obstruction or gangrene (principal); E66.9 Obesity, unspecified; Z68.37 Body mass index [BMI] 37.0-37.9, adult; Z87.891 Personal history of nicotine dependence
CPT/HCPCS: 81025; A9270-GY; C1776; C1781; G0378; J0690; J1100; J1170; J1644; J2250; J2405; J2704; J3010

== ENCOUNTER 2017-11-04 15:08 | Emergency (ER) | payer OTHER ==
[2017-11-04 15:26] VITALS: BP 140/102
--- NOTE | 2017-11-04 15:51 | UC ---
General HPI - HPI Summary HPI Summary: This patient is a 47 year old F presenting to [facility] with a chief complaint of right sided facial numbness, right sided facial drooping and right neck pain. She states this morning symptoms began with right eye watering, that slowly worsened throughout the day with her current symptoms. She states she is not able to smile normally and has been told she has changes in speech. Right neck pain is 2/10 in severity upon triage. PMHX of RLE DVT in December 2016, after a long car ride. She was on blood thinner temporarily for 6 months after. - History of Current Complaint Chief Complaint: UCGeneralIllness Stated Complaint: FACIAL NUMBNESS Time Seen by Provider: 11/04/17 15:38 Hx Obtained From: Patient Hx Last Menstrual Period: 10/25/17 Onset/Duration: Lasting Hours Onset Severity: Mild Current Severity: Moderate Pain Intensity: 2 Pain Location at: right neck Character: numbness and weakness to right face Associated Signs & Symptoms: Positive: Other - neck pain, eye watering, speech changes, facial drooping - Allergy/Home Medications Allergies/Adverse Reactions: Allergies Allergy/AdvReac Type Severity Reaction Status Date / Time BEE STINGS Allergy Severe Swelling Uncoded 11/04/17 15:26 Home Medications: Home Medications Aspirin TAB* [Aspirin 325 MG TAB*] 650 mg PO ONCE 11/04/17 [History Confirmed ] PMH/Surg Hx/FS Hx/Imm Hx Cardiovascular History: Deep Vein Thrombosis - Surgical History Surgical History: Yes Surgery Procedure, Year, and Place: 2005 D/C MISSED AB [facility]. 2011 UMBILICAL HERNIA REPAIR, [facility] [place]. 04/2012 LAPAROSCOPIC VENTRAL HERNIA REPAIR WITH MESH, [facility] [place]. 2011 [facility],. 01/2013 EXP LAPAROTOMY, LYSIS OF ADHESION, VENTRAL HERNIA REPAIR WITH REPLACEMENT OF MESH, [facility] [place]. 2015 HERNIA REPAIR [facility] [place] - Family History Known Family History: Positive: Other - breast CA, anasthesis reaction - Social History Alcohol Use: Daily Alcohol Amount: 1 GLASS WINE/DAY Substance Use Type: None Smoking Status (MU): Former Smoker Type: Cigarettes Amount Used/How Often: 1/2 PPD 12 YRS Length of Time of Smoking/Using Tobacco: 15 YEARS Have You Smoked in the Last Year: No When Did the Patient Quit Smoking/Using Tobacco: QUIT 2003 - Immunization History Most Recent Influenza Vaccination: never Most Recent Tetanus Shot: within last 10 years Most Recent Pneumonia Vaccination: never Review of Systems Eyes: Drainage Neurological: Weakness - rigth face, Numbness - right face, Other - speech changes All Other Systems Reviewed And Are Negative: Yes Physical Exam - Summary Physical Exam Summary: General: well-appearing, no pain distress Skin: warm, color reflects adequate perfusion, dry Head: normal Eyes: EOMI, MITCH, right eye lid drifts open ENT: normal Neck: supple, nontender Respiratory: CTA, breath sounds present Cardiovascular: RRR Abdomen: soft, nontender Bowel: present Musculoskeletal: normal, strength/ROM intact Neurological: sensory/motor intact, A&O x3, no focal neurological deficits, no visual loss, right facial droop including right forhead, right eye lid drifts open Psychological: affect/mood appropriate Triage Information Reviewed: Yes Vital Signs: Initial Vital Signs Temp 98.3 F 11/04/17 15:18 Pulse 74 11/04/17 15:18 Resp 16 11/04/17 15:18 BP 140/102 11/04/17 15:18 Pulse Ox 97 11/04/17 15:18 Vital Signs Reviewed: Yes Course/Dx - Course Course Of Treatment: DISCUSSED BELLS DX WITH THE PATIRNT. LYME SCREEN SENT. F/ U PMD; RECHECK SOONER IF WORSE. - Differential Dx - Multi-Symptom Provider Diagnoses: BELLS PALSY RIGHT Discharge - Sign-Out/Discharge Documenting (check all that apply): Patient Departure - Discharge Plan Condition: Stable Disposition: HOME Prescriptions: predniSONE TAB* [Deltasone 20 MG TAB*] 60 mg PO DAILY #21 tab Valacyclovir HCl [Valacyclovir] 1,000 mg PO TID #21 tab Patient Education Materials: Fournier Palsy (ED) Referrals: Doris Carter MD [Primary Care Provider] - Additional Instructions: FOLLOW UP WITH YOUR DOCTOR. USE ARTIFICIAL TEARS AND WEAR AN EYE PATCH AT NIGHT IF NEEDED TO PROTECT YOUR EYE. GET RECHECKED FOR ANY WORSENING OF YOUR CONDITION; NEW WEAKNESS, NUMBNESS, DIFFICULTY WITH SPEECH OR VISION OR QUESTIONS OR CONCERNS. - Billing Disposition and Condition Condition: STABLE Disposition: Home
[2017-11-05 13:44] LABS: ABS Basophils 0.1 10^3/ul (0-0.2); ABS Eosinophils 0.2 10^3/ul (0-0.6); ABS Lymphocytes 2.4 10^3/ul (1.0-4.8); ABS Monocytes 0.4 10^3/ul (0-0.8); ABS Neutrophils 3.4 10^3/ul (1.5-7.7); ABS Nucleated RBC 0 10^3/ul; Eosinophil % 2.6 % (0-6); Hematocrit 43 % (35-47); Hemoglobin 14.3 g/dl (12.0-16.0); Lymphocyte % 37.6 % (25-47); Mean Corpuscular HGB Conc 33 g/dl (31-36); Mean Corpuscular Hemoglobin 28 pg (27-31); Mean Corpuscular Volume 84 fL (80-97); Mean Platelet Volume 9.7 um3 (7.4-10.4); Nucleated Red Blood Cells % 0.2; Platelet Count 398 10^3/ul (150-450); Red Blood Count 5.09 10^6/ul (4.00-5.40); Red Cell Distribution Width 15 % (10.5-15); White Blood Count 6.4 10^3/ul (3.5-10.8)
[2017-11-05 14:16] LABS: EGFR Non-African American 85.5 (>60)
== END 2017-11-04 16:14 | disposition home or self-care (01) ==
LOC: UCEAST 15:08
DX: G51.0 Bell's palsy (principal); M54.2 Cervicalgia; Z86.718 Personal history of other venous thrombosis and embolism; Z79.82 Long term (current) use of aspirin; Z91.030 Bee allergy status; Z80.3 Family history of malignant neoplasm of breast; Z87.891 Personal history of nicotine dependence
CPT/HCPCS: 36415; 80053; 85025; 86140; 86618; 99202; G0463

== ENCOUNTER 2018-03-31 15:13 | Emergency (ER) | payer OTHER ==
[2018-03-31 16:16] LABS: ABS Basophils 0 10^3/ul (0-0.2); ABS Eosinophils 0.1 10^3/ul (0-0.6); ABS Lymphocytes 1.9 10^3/ul (1.0-4.8); ABS Monocytes 0.5 10^3/ul (0-0.8); ABS Neutrophils 5.3 10^3/ul (1.5-7.7); ABS Nucleated RBC 0 10^3/ul; Eosinophil % 1.5 %; Hematocrit 40 % (35-47); Hemoglobin 13.6 g/dl (12.0-16.0); Lymphocyte % 24.6 %; Mean Corpuscular HGB Conc 34 g/dl (31-36); Mean Corpuscular Hemoglobin 29 pg (27-31); Mean Corpuscular Volume 85 fL (80-97); Mean Platelet Volume 8.3 fL (7.4-10.4); Nucleated Red Blood Cells % 0.1; Platelet Count 357 10^3/ul (150-450); Red Blood Count 4.67 10^6/ul (4.00-5.40); Red Cell Distribution Width 14 % (10.5-15); White Blood Count 7.9 10^3/ul (3.5-10.8)
[2018-03-31] MEDS ORDERED: NS 0.9% 1000 ML* 1,000 ML IV ONE (16:20)
[2018-03-31 16:24] LABS: INR 0.86 (0.77-1.02)
[2018-03-31 16:32] LABS: EGFR Non-African American 75.8 (>60)
[2018-03-31] MEDS ORDERED: Iohexol 350* (CONTRAST) 500 ML MDV IV ONE (16:40)
[2018-03-31] MEDS ORDERED: Nitroglycerin TAB 0.4 MG* 0.4 MG TAB SL ONE (16:43)
[2018-03-31] MEDS ORDERED: Aspirin 81 mg CHEW TAB* 81 MG TAB.CHEW PO ONE (16:43)
--- NOTE | 2018-03-31 16:54 | ED ---
HPI Chest Pain - HPI Summary HPI Summary: A 47 y/o female accompanied by family presents to the ED c/o chest pain. Currently, the patient is still experiencing intermittent mid-sternal chest pain reaching 2/10 in severity since 12:30 - 1300 today. In the ED room, the patient has a pulse of 94 BPM, O2 saturation of 98%, and blood pressure of 141/ 96. As per triage, "feeling impending doom, "squeezing" feeling in chest with pain to mid back, cold/shaky hands, nausea, dizziness, panic feeling. no cardiac history, recent HTN. history of DVT". According to the patient, she is feeling cold in the middle of her chest and it has been spreading and not going away. Additional symptoms include SOB. Additionally, her back (near bar strap) is in pain. She noted that she feels like the "world is going to end" as she looked up symptoms on the internet. She further noted that she usually doesn't have anxiety. She feels "Oh my god, I am gonna in 5 seconds", then the pain will come down. PMHx of DVT in right leg, DM, and HBP. FHx of heart disease ( grandmother). SHx of former smoker (quit 15 years ago), ETOH (1-2 glass per wine every other day), no recreational drugs. Allergic to bees. Not allergic to contrast. - History of Current Complaint Chief Complaint: EDChestPainROMI Time Seen by Provider: 03/31/18 15:41 Hx Obtained From: Patient Hx Last Menstrual Period: 10/25/17 Onset/Duration: Still Present Timing: Intermittent Initial Severity: Mild Current Severity: Mild Pain Intensity: 2 Pain Scale Used: 0-10 Numeric Chest Pain Location: Mid Sternal Chest Pain Radiates: Yes Chest Pain Radiates To:: Back Character: Other: - COLD Aggravating Factor(s): Nothing Alleviating Factor(s): Nothing Associated Signs and Symptoms: Positive: Chest Pain, Anxiety, Shortness of Breath. Negative: Fever - Allergy/Home Medications Allergies/Adverse Reactions: Allergies Allergy/AdvReac Type Severity Reaction Status Date / Time bee venom protein (honey bee) Allergy Swelling Verified 03/31/18 15:18 Home Medications: Home Medications NK [No Home Medications Reported] 03/31/18 [History Confirmed 03/31/18] PMH/Surg Hx/FS Hx/Imm Hx Endocrine/Hematology History: Denies: Hx Diabetes, Hx Sickle Cell Disease Cardiovascular History: Reports: Hx Hypertension Denies: Other Cardiovascular Problems/Disorders Respiratory History: Denies: Other Respiratory Problems/Disorders GI History: Denies: Other GI Disorders - umbilical hernia repair 2011 History: Denies: Other Problems/Disorders Musculoskeletal History: Denies: Hx Tendonitis, Other Musculoskeletal History Sensory History: Reports: Hx Contacts or Glasses - GLASSES Denies: Hx Hearing Aid Opthamlomology History: Reports: Hx Contacts or Glasses - GLASSES Neurological History: Denies: Other Neuro Impairments/Disorders - Cancer History Hx Chemotherapy: No Hx Radiation Therapy: No - Surgical History Surgery Procedure, Year, and Place: 2005 D/C MISSED AB [facility]. [place] [facility] [facility] [place] LAP[place] [facility] [place]. [place] CERCLAGEMAR[place],. 01/2013 EXP LAPAROTOMY, LYSIS OF ADHESION, VENTRAL [place] WITH REPLAC[place] [facility] [place] [facility] [place] Anesthesia Reactions: No Infectious Disease History: No Infectious Disease History: Denies: Hx Clostridium Difficile, Hx Hepatitis, Hx Human Immunodeficiency Virus (HIV), Hx of Known/Suspected MRSA, Hx Shingles, Hx Tuberculosis, Hx Known/ Suspected VRE, Hx Known/Suspected VRSA, History Other Infectious Disease, Traveled Outside the [place] in Last 30 Days - Family History Known Family History: Positive: Cardiac Disease, Other - breast CA, anasthesis reaction - Social History Alcohol Use: Daily Alcohol Amount: 1 GLASS WINE/DAY Substance Use Type: Reports: None Smoking Status (MU): Former Smoker Type: Cigarettes Amount Used/How Often: 1/2 PPD 12 YRS Length of Time of Smoking/Using Tobacco: 15 YEARS Have You Smoked in the Last Year: No Review of Systems Positive: Other - POSITIVE: SHAKINESS. Negative: Fever Positive: Chest Pain Positive: Shortness Of Breath Positive: Nausea Neurological: Other - POSITIVE: DIZZINESS Positive: Anxious All Other Systems Reviewed And Are Negative: Yes Physical Exam - Summary Physical Exam Summary: GENERAL: Patient is a well-developed and nourished female who is lying comfortable in the stretcher. Patient is not in any acute respiratory distress. HEAD AND FACE: Normocephalic EYES: PERRLA, EOMI x 2. EARS: Hearing grossly intact. MOUTH: Oropharynx within normal limits. NECK: Supple, trachea is midline, no adenopathy, no JVD, no carotid bruit. CHEST: Symmetric, no tenderness at palpation LUNGS: Clear to auscultation bilaterally. No wheezing or crackles. CVS: Regular rate and rhythm, S1 and S2 present, no murmurs or gallops appreciated. ABDOMEN: Soft, non-tender. Bowel sounds are normal. No abdominal abnormal pulsations. EXTREMITIES: Full ROM in all major joints, no edema, no cyanosis or clubbing. NEURO: Alert and oriented x 3. No acute neurological deficits. Speech is normal and follows commands. SKIN: Dry and warm Triage Information Reviewed: Yes Vital Signs On Initial Exam: Initial Vitals Temp Pulse Resp BP Pulse Ox 98.9 F 93 18 170/104 99 03/31/18 15:15 03/31/18 15:15 03/31/18 15:15 03/31/18 15:15 03/31/18 15:15 Vital Signs Reviewed: Yes Diagnostics - Vital Signs Vital Signs Temp Pulse Resp BP Pulse Ox 03/31/18 16:45 98 03/31/18 16:32 85 20 152/92 99 03/31/18 16:00 89 15 98 03/31/18 15:33 84 19 98 03/31/18 15:32 86 22 141/96 97 03/31/18 15:15 98.9 F 93 18 170/104 99 - Laboratory Lab Results: Lab Results 03/31/18 03/31/18 03/31/18 Range/Units 15:56 15:56 15:56 WBC 7.9 (3.5-10.8) 10^3/ul RBC 4.67 (4.00-5.40) 10^6/ul Hgb 13.6 (12.0-16.0) g/dl Hct 40 (35-47) % MCV 85 (80-97) fL MCH 29 (27-31) pg MCHC 34 (31-36) g/dl RDW 14 (10.5-15) % Plt Count 357 (150-450) 10^3/ul MPV 8.3 (7.4-10.4) fL Neut % (Auto) 67.2 % Lymph % (Auto) 24.6 % [place] % (Auto) 6.4 % Eos % (Auto) 1.5 % Baso % (Auto) 0.3 % Absolute Neuts (auto) 5.3 (1.5-7.7) 10^3/ul Absolute Lymphs (auto) 1.9 (1.0-4.8) 10^3/ul Absolute Monos (auto) 0.5 (0-0.8) 10^3/ul Absolute Eos (auto) 0.1 (0-0.6) 10^3/ul Absolute Basos (auto) 0 (0-0.2) 10^3/ul Absolute Nucleated RBC 0 10^3/ul Nucleated RBC % 0.1 INR (Anticoag Therapy) (0.77-1.02) APTT (26.0-36.3) seconds D-Dimer, Quantitative (Less Than 230) ng/mL Sodium 137 (135-145) mmol/L Potassium 3.8 (3.5-5.0) mmol/L Chloride 108 (101-111) mmol/L Carbon Dioxide 23 (22-32) mmol/L Anion Gap 6 (2-11) mmol/L BUN 18 (6-24) mg/dL Creatinine 0.81 (0.51-0.95) mg/dL Est GFR ( Amer) 91.7 (>60) Est GFR (Non-Af Amer) 75.8 (>60) BUN/Creatinine Ratio 22.2 H (8-20) Glucose 147 H (70-100) mg/dL Lactic Acid 1.6 (0.5-2.0) mmol/L Calcium 9.2 (8.6-10.3) mg/dL Magnesium 2.0 (1.9-2.7) mg/dL Total Bilirubin 0.30 (0.2-1.0) mg/dL AST 13 (13-39) U/L ALT 12 (7-52) U/L Alkaline Phosphatase 48 (34-104) U/L CK-MB (CK-2) 1.4 (0.6-6.3) ng/mL Troponin I 0.00 (<0.04) ng/mL B-Natriuretic Peptide (<=100) pg/mL Total Protein 6.6 (6.4-8.9) g/dL Albumin 4.1 (3.2-5.2) g/dL Globulin 2.5 (2-4) g/dL Albumin/Globulin Ratio 1.6 (1-3) 12/08/18 12/08/18 12/08/18 Range/Units 15:56 15:56 15:57 WBC (3.5-10.8) 10^3/ul RBC (4.00-5.40) 10^6/ul Hgb (12.0-16.0) g/dl Hct (35-47) % MCV (80-97) fL MCH (27-31) pg MCHC (31-36) g/dl RDW (10.5-15) % Plt Count (150-450) 10^3/ul MPV (7.4-10.4) fL Neut % (Auto) % Lymph % (Auto) % [place] % (Auto) % Eos % (Auto) % Baso % (Auto) % Absolute Neuts (auto) (1.5-7.7) 10^3/ul Absolute Lymphs (auto) (1.0-4.8) 10^3/ul Absolute Monos (auto) (0-0.8) 10^3/ul Absolute Eos (auto) (0-0.6) 10^3/ul Absolute Basos (auto) (0-0.2) 10^3/ul Absolute Nucleated RBC 10^3/ul Nucleated RBC % INR (Anticoag Therapy) 0.86 (0.77-1.02) APTT 30.3 (26.0-36.3) seconds D-Dimer, Quantitative < 200 (Less Than 230) ng/mL Sodium (135-145) mmol/L Potassium (3.5-5.0) mmol/L Chloride (101-111) mmol/L Carbon Dioxide (22-32) mmol/L Anion Gap (2-11) mmol/L BUN (6-24) mg/dL Creatinine (0.51-0.95) mg/dL Est GFR ( Amer) (>60) Est GFR (Non-Af Amer) (>60) BUN/Creatinine Ratio (8-20) Glucose (70-100) mg/dL Lactic Acid (0.5-2.0) mmol/L Calcium (8.6-10.3) mg/dL Magnesium (1.9-2.7) mg/dL Total Bilirubin (0.2-1.0) mg/dL AST (13-39) U/L ALT (7-52) U/L Alkaline Phosphatase (34-104) U/L CK-MB (CK-2) (0.6-6.3) ng/mL Troponin I 0.00 (<0.04) ng/mL B-Natriuretic Peptide 11 (<=100) pg/mL Total Protein (6.4-8.9) g/dL Albumin (3.2-5.2) g/dL Globulin (2-4) g/dL Albumin/Globulin Ratio (1-3) Result Diagrams: 03/31/18 15:56 03/31/18 15:56 Lab Statement: Any lab studies that have been ordered have been reviewed, and results considered in the medical decision making process. - Radiology CXR Radiology Interpretation Completed By: Radiologist - No radiographic evidence for acute cardiopulmonary abnormality on this portable chest x-ray. ED PHYSICIAN REVIEWED THIS RADIOLOGY REPORT. - CT CTA Chest/Abdomen/Pelvis CT Interpretation Completed By: Radiologist - 1. There is no CT evidence of aortic dissection, aneurysm or other acute vascular abnormality. 2. In the right lower lobe there is a pulmonary nodule with an average dimension of about 4 mm. This can be followed according to the Fleischner Society criteria. 3. CT findings are suspicious for uterine fibroids and/or adenomyosis. If the patient reports gynecologic symptoms superior characterization can be made with transvaginal ultrasound. 4. Postoperative findings described in the body the report. There is a very small supraumbilical midline ventral hernia that is greatly reduced when compared to the most recent August 25, 2016 CT examination. ED PHYSICIAN REVIEWED THIS RADIOLOGY REPORT. - EKG 1528 Cardiac Rate: NL - 78 BPM EKG Rhythm: Sinus Rhythm - 78 BPM Summary of EKG Findings: NORMAL AXIS. Chest Pain Course/Dx - Course Course Of Treatment: A 47 y/o female accompanied by family presents to the ED c/ o chest pain. Currently, the patient is still experiencing intermittent mid- sternal chest pain reaching 2/10 in severity since 12:30 - 1300 today. In the ED room, the patient has a pulse of 94 BPM, O2 saturation of 98%, and blood pressure of 141/96. As per triage, "feeling impending doom, "squeezing" feeling in chest with pain to mid back, cold/shaky hands, nausea, dizziness, panic feeling. no cardiac history, recent HTN. history of DVT". According to the patient, she is feeling cold in the middle of her chest and it has been spreading and not going away. Additional symptoms include SOB. Additionally, her back (near bar strap) is in pain. She noted that she feels like the "world is going to end" as she looked up symptoms on the internet. She further noted that she usually doesn't have anxiety. She feels "Oh my god, I am gonna in 5 seconds", then the pain will come down. PMHx of DVT in right leg, DM, and HBP. Physical examination findings were unremarkable. A CXR revealed no radiographic evidence for acute cardiopulmonary abnormality on this portable chest x-ray. An EKG revealed NSR of 78 BPM, normal axis. A CTA Chest/Abdomen/ Pelvis revealed 1. There is no CT evidence of aortic dissection, aneurysm or other acute vascular abnormality. 2. In the right lower lobe there is a pulmonary nodule with an average dimension of about 4 mm. This can be followed according to the Fleischner Society criteria. 3. CT findings are suspicious for uterine fibroids and/or adenomyosis. If the patient reports gynecologic symptoms superior characterization can be made with transvaginal ultrasound. 4. Postoperative findings described in the body the report. There is a very small supraumbilical midline ventral hernia that is greatly reduced when compared to the most recent August 25, 2016 CT examination. Hematology was done. Labs were all within normal limits. In the ED course, the patient received Aspirin, Omnipaque , NTG, and IV fluids. Patient will be signed out to Dr. Kelly via Dr. Delgado, Troponin and disposition, upon shift change on 03/31/2018 at 1900. Patient will be signed out with a diagnosis of chest pain. - Diagnoses Provider Diagnoses: Chest pain Discharge - Sign-Out/Discharge Documenting (check all that apply): Sign-Out Patient - NORBERT Signing out patient TO: Quentin Kelly Receiving patient FROM: Matt Delgado - Discharge Plan Condition: Stable Disposition: HOME Patient Education Materials: Chest Pain (ED) Referrals: Niranjan Roe MD [Medical Doctor] - (Please follow up in 2-3 days.) Additional Instructions: RETURN TO THE EMERGENCY DEPARTMENT FOR CHANGING OR WORSENING SYMPTOMS. FOLLOW UP WITH PCP IN 1-2 DAYS. Please do a stress test as an outpatient with Dr. Roe. - Billing Disposition and Condition Condition: STABLE Disposition: Home - Attestation Statements Document Initiated by Ivanna: Yes Documenting Scribe: Felton Myers Provider For Whom Ivanna is Documenting (Include Credential): Matt Delgado MD Scribe Attestation: Felton Wills, scribed for Matt Delagdo MD on 04/01/18 at 0751. Scribe Documentation Reviewed: Yes Provider Attestation: The documentation as recorded by the Felton kee accurately reflects the service I personally performed and the decisions made by me, Matt Delgado MD Status of Scribe Document: Viewed
--- NOTE | 2018-03-31 19:26 | ED ---
Progress - Progress Note Progress Note: This patient was signed out from Dr. Delgado to Dr. Kelly, pending dispo, awaiting trop. Trop was 0.00. This patient will be discharged with dx of CP and instructions to take a stress test at an outpatient. Patient understands and is agreeable with this plan. Course/Dx - Course Course Of Treatment: A 47 y/o female accompanied by family presents to the ED c/ o chest pain. Currently, the patient is still experiencing intermittent mid- sternal chest pain reaching 2/10 in severity since 12:30 - 1300 today. In the ED room, the patient has a pulse of 94 BPM, O2 saturation of 98%, and blood pressure of 141/96. As per triage, "feeling impending doom, "squeezing" feeling in chest with pain to mid back, cold/shaky hands, nausea, dizziness, panic feeling. no cardiac history, recent HTN. history of DVT". According to the patient, she is feeling cold in the middle of her chest and it has been spreading and not going away. Additional symptoms include SOB. Additionally, her back (near bar strap) is in pain. She noted that she feels like the "world is going to end" as she looked up symptoms on the internet. She further noted that she usually doesn't have anxiety. She feels "Oh my god, I am gonna in 5 seconds", then the pain will come down. PMHx of DVT in right leg, DM, and HBP. Physical examination findings were unremarkable. A CXR revealed no radiographic evidence for acute cardiopulmonary abnormality on this portable chest x-ray. An EKG revealed NSR of 78 BPM, normal axis. A CTA Chest/Abdomen/ Pelvis revealed 1. There is no CT evidence of aortic dissection, aneurysm or other acute vascular abnormality. 2. In the right lower lobe there is a pulmonary nodule with an average dimension of about 4 mm. This can be followed according to the Fleischner Society criteria. 3. CT findings are suspicious for uterine fibroids and/or adenomyosis. If the patient reports gynecologic symptoms superior characterization can be made with transvaginal ultrasound. 4. Postoperative findings described in the body the report. There is a very small supraumbilical midline ventral hernia that is greatly reduced when compared to the most recent August 25, 2016 CT examination. Hematology was done. Labs were all within normal limits. In the ED course, the patient received Aspirin, Omnipaque , NTG, and IV fluids. Patient will be signed out to Dr. Kelly via Dr. Delgado, Troponin and disposition, upon shift change on 03/31/2018 at 1900. Patient will be signed out with a diagnosis of chest pain. - Diagnoses Provider Diagnoses: Chest pain Discharge - Sign-Out/Discharge Documenting (check all that apply): Patient Departure - Discharge Plan Condition: Stable Disposition: HOME Patient Education Materials: Chest Pain (ED) Referrals: Niranjan Roe MD [Medical Doctor] - (Please follow up in 2-3 days.) Additional Instructions: RETURN TO THE EMERGENCY DEPARTMENT FOR CHANGING OR WORSENING SYMPTOMS. FOLLOW UP WITH PCP IN 1-2 DAYS. Please do a stress test as an outpatient with Dr. Roe. - Billing Disposition and Condition Condition: STABLE Disposition: Home - Attestation Statements Document Initiated by Scribe: Yes Documenting Scribe: Harsha Geiger Provider For Whom Scribe is Documenting (Include Credential): Quentin Kelly MD Scribe Attestation: Harsha Wills, scribed for Quentin Kelly MD on 04/01/18 at 0614. Scribe Documentation Reviewed: Yes Provider Attestation: The documentation as recorded by the Harsha kee accurately reflects the service I personally performed and the decisions made by Dimitri friedman MD Status of Scribe Document: Viewed
[2018-03-31 20:37] VITALS: BP 147/96
== END 2018-03-31 20:36 | disposition home or self-care (01) ==
LOC: ED 15:13
DX: R07.89 Other chest pain (principal); R91.1 Solitary pulmonary nodule; R06.02 Shortness of breath; F41.9 Anxiety disorder, unspecified; R11.0 Nausea; R42 Dizziness and giddiness; Z91.030 Bee allergy status; Z82.49 Family history of ischemic heart disease and other diseases of the circulatory system; Z80.3 Family history of malignant neoplasm of breast; Z87.891 Personal history of nicotine dependence
CPT/HCPCS: 36415; 71045; 71275; 74174; 80053; 80307; 82553; 83605; 83735; 83880; 84484; 85025; 85379; 85610; 85730; 93005; 96360; 99283; A9270-GY; Q9967